=== PATIENT | male | born 1985 | race Caucasian/White ===

== ENCOUNTER 2018-08-16 21:06 | Emergency (ER) | payer MEDICAID, OTHER ==
[~2018-08-16] VITALS: Ht 170.2 cm; Wt 72.7 kg
[2018-08-16 21:08] VITALS: Ht 170.2 cm; Wt 72.7 kg
[2018-08-16] MEDS ORDERED: SOD CHLORIDE 0.9% 1,000 ML IV STA (21:09)
[2018-08-16] MEDS ORDERED: LORAZEPAM 2 MG INJ IV ONE (22:00)
[2018-08-16] MEDS ORDERED: HALOPERIDOL 5 MG INJ IM ONE (22:00)
[2018-08-16] MEDS ORDERED: IBUPROFEN 200 MG TAB ONE (22:31)
--- NOTE | 2018-08-16 22:32 | ERD ---
ER Documentation Chief Complaint Chief Complaint BIB RA39 s/p intentional hanging/suicide attempt HPI This is a 33-year-old male with a history of severe depression and prior suicide attempt. He is here with his girlfriend who came home from work and found him in bed. She said he was not very responsive so she rolled him over to look at him and he was mumbling garbled speech and had severe petechiae and purpura on his face and neck. She ran into the closet and saw a belt where he apparently tried to hang himself. She said he is tried to hang himself in the past. He did not leave a note. The patient is unable to converse with me and will not answer questions. She said he has been altered since she found to him and is just mumbling. She said he will have episodes where he will yell and curse words clearly and get a bit combative. She said there are no pills in the house that she knows of, there is no alcohol in the house. And there are no drugs.. She states that lately he has been acting more depressed than usual and has insinuated that he may try to kill himself again. ROS All systems reviewed and are negative except as per history of present illness. PMhx/Soc Medical and Surgical Hx: pt denies Medical Hx, pt denies Surgical Hx Smoking Status: Unknown if ever smoked FmHx Family History: No coronary disease Physical Exam Vitals Vital Signs Date Temp Pulse Resp B/P (MAP) Pulse Ox O2 O2 Flow FiO2 Time Delivery Rate 08/16/18 98.3 102 30 124/91 100 21:08 (102) Physical Exam Const: Well-developed, well-nourished Head: Atraumatic, normocephalic Eyes: Normal Conjunctiva, PERRLA, EOMI, normal sclera, no nystagmus ENT: Normal External Ears, Nose and Mouth, moist mucus membranes, multiple petechiae on his face with some ecchymosis. Neck: Patient is in a c-collar with bruising around his neck.] Resp: Clear to auscultation bilaterally, no wheezing, rhonchi, rales Cardio: Regular rate and rhythm, no murmurs, S1 S2 present Abd: Soft, non tender x 4, non distended. Normal bowel sounds, no guarding or rebound, no pulsitile abdominal masses or bruits Skin: No petechiae or rashes, no ecchymosis , no maculopapular rash Back: No midline or flank tenderness Ext: No cyanosis, or edema, FROM x 4, normal inspection, neurovascularly intact x 4 Neur: [Moves all 4 extremities with some gibberish talk then will become belligerent and combative yelling curse words Psych: Unable to assess Result Diagram: 08/16/18210808/16/182108 Results 24 hrs Laboratory Tests Test 08/16/18 21:09 White Blood Count 18.3 10^3/ul Red Blood Count 5.49 10^6/ul Hemoglobin 16.4 g/dl Hematocrit 47.6 % Mean Corpuscular Volume 86.7 fl Mean Corpuscular Hemoglobin 29.9 pg Mean Corpuscular Hemoglobin Concent 34.5 g/dl Red Cell Distribution Width 12.5 % Platelet Count 415 10^3/UL Mean Platelet Volume 9.0 fl Immature Granulocytes % 0.900 % Neutrophils % 77.3 % Lymphocytes % 16.9 % Monocytes % 4.1 % Eosinophils % 0.5 % Basophils % 0.3 % Nucleated Red Blood Cells % 0.0 /100WBC Immature Granulocytes # 0.170 10^3/ul Neutrophils # 14.1 10^3/ul Lymphocytes # 3.1 10^3/ul Monocytes # 0.8 10^3/ul Eosinophils # 0.1 10^3/ul Basophils # 0.1 10^3/ul Nucleated Red Blood Cells # 0.0 10^3/ul Prothrombin Time 12.4 Sec Prothrombin Time Ratio 1.0 INR International Normalized Ratio 0.91 Activated Partial Thromboplast Time 26.2 Sec Sodium Level 140 mmol/L Potassium Level 4.5 mmol/L Chloride Level 105 mmol/L Carbon Dioxide Level 18 mmol/L Anion Gap 17 Blood Urea Nitrogen 12 mg/dl Creatinine 1.20 mg/dl Est Glomerular Filtrat Rate mL/min > 60 mL/min Glucose Level 236 mg/dl Calcium Level 9.9 mg/dl Total Bilirubin 0.8 mg/dl Direct Bilirubin 0.00 mg/dl Indirect Bilirubin 0.8 mg/dl Aspartate Amino Transf (AST/SGOT) 43 IU/L Alanine Aminotransferase (ALT/SGPT) 32 IU/L Alkaline Phosphatase 67 IU/L Total Protein 8.8 g/dl Albumin 5.3 g/dl Globulin 3.50 g/dl Albumin/Globulin Ratio 1.51 Salicylates Level < 1.0 mg/dl Acetaminophen Level < 10.0 ug/ml Ethyl Alcohol Level < 10.0 mg/dl Current Medications Medications Dose Sig/Sintia Start Time Status Last (Trade) Ordered Route PRN Stop Time Admin Dose Reason Admin Sodium 1,000 ml @ Q1H STAT 08/16/18 DC 08/16/18 Chloride 1,000 mls/hr IV 21:09 21:44 08/16/18 22:08 Lorazepam 1 mg ONCE ONCE 08/16/18 DC 08/16/18 (Ativan) IV 22:00 21:44 08/16/18 22:01 Haloperidol 5 mg ONCE ONCE 08/16/18 DC 08/16/18 (Haldol) IM 22:00 21:43 08/16/18 22:01 Ibuprofen 200 mg STK-MED 08/16/18 DC (Motrin) ONCE .ROUTE 22:31 08/16/18 22:32 50 mg ONCE ONCE 08/16/18 08/16/18 Diphenhydrami IV 23:00 22:38 ne HCl 08/16/18 23:01 (Benadryl) Procedures/MDM The patient so far his labs are unremarkable and are waiting the UDS The patient was taken to CT scan, and we were unable to do this because he became very belligerent and was yelling absurdities. Patient needed to be given Ativan 1 mg IV, Haldol 5 mg IM and Benadryl 50 mg IV. We will obtain CT scans of the brain, soft tissue neck, C-spine, chest x-ray. He will then need to be seen by psychiatry for a 5150 hold pending these results. These were negative should be clinically clear for inpatient treatment and will transfer out. Departure Diagnosis: Primary Impression: Suicide attempt by hanging Encounter type: initial encounter Qualified Codes: T71.162A - Asphyxiation due to hanging, intentional self-harm, initial encounter Condition: JOSE Juan DO Aug 16, 2018 22:32
[2018-08-16] MEDS ORDERED: DIPHENHYDRAMINE 50 MG INJ IV ONE (23:00)
[2018-08-16] MEDS ORDERED: IODIXANOL LOCM 100 ML BTL ONE (23:06)
[2018-08-16] MEDS ORDERED: SOD CHLORIDE 0.9% 100 ML ONE (23:06)
--- NOTE | 2018-08-17 03:49 | PSY ---
Date/Time of Note Date/Time of Note DATE: 08/17/18 TIME: 03:44 Psychiatric Subjective Eval Consent Pt consented to telemedicine: Yes Subjective Evaluation Patient location: emergency Chief Complaint: BIB RA39 s/p intentional hanging/suicide attempt Medical history Problems Medical Problems: (1) Suicide attempt by hanging Status: Acute Allergies: Coded Allergies: No Known Allergy (Unverified , 08/16/18) Psychiatric Objective Eval Mental Status Examination: Laboratory Results Laboratory Tests Test 08/16/18 21:09 White Blood Count 18.3 10^3/ul Red Blood Count 5.49 10^6/ul Hemoglobin 16.4 g/dl Hematocrit 47.6 % Mean Corpuscular Volume 86.7 fl Mean Corpuscular Hemoglobin 29.9 pg Mean Corpuscular Hemoglobin Concent 34.5 g/dl Red Cell Distribution Width 12.5 % Platelet Count 415 10^3/UL Mean Platelet Volume 9.0 fl Immature Granulocytes % 0.900 % Neutrophils % 77.3 % Lymphocytes % 16.9 % Monocytes % 4.1 % Eosinophils % 0.5 % Basophils % 0.3 % Nucleated Red Blood Cells % 0.0 /100WBC Immature Granulocytes # 0.170 10^3/ul Neutrophils # 14.1 10^3/ul Lymphocytes # 3.1 10^3/ul Monocytes # 0.8 10^3/ul Eosinophils # 0.1 10^3/ul Basophils # 0.1 10^3/ul Nucleated Red Blood Cells # 0.0 10^3/ul Prothrombin Time 12.4 Sec Prothrombin Time Ratio 1.0 INR International Normalized Ratio 0.91 Activated Partial Thromboplast Time 26.2 Sec Sodium Level 140 mmol/L Potassium Level 4.5 mmol/L Chloride Level 105 mmol/L Carbon Dioxide Level 18 mmol/L Anion Gap 17 Blood Urea Nitrogen 12 mg/dl Creatinine 1.20 mg/dl Est Glomerular Filtrat Rate mL/min > 60 mL/min Glucose Level 236 mg/dl Calcium Level 9.9 mg/dl Total Bilirubin 0.8 mg/dl Direct Bilirubin 0.00 mg/dl Indirect Bilirubin 0.8 mg/dl Aspartate Amino Transf (AST/SGOT) 43 IU/L Alanine Aminotransferase (ALT/SGPT) 32 IU/L Alkaline Phosphatase 67 IU/L Total Protein 8.8 g/dl Albumin 5.3 g/dl Globulin 3.50 g/dl Albumin/Globulin Ratio 1.51 Salicylates Level < 1.0 mg/dl Acetaminophen Level < 10.0 ug/ml Ethyl Alcohol Level < 10.0 mg/dl Assessment and Plan Recommendation/Plan Discharge Disposition: Psychiatric inpatient Legal Status: Place involuntary hold Assessment Additional comments: IDENTIFYING INFORMATION: 33 year old Male patient who is currently located at the hospital and for whom psychiatric consultation was requested. SOURCES OF INFORMATION: The patient who appears to be reliable and the medical records; the nursing staff. CHIEF COMPLAINT: "my friend found out". HISTORY OF PRESENT ILLNESS: The patient was interviewed via telemedicine in the presence of and under the supervision of nursing staff of the hospital. The consent to conducting this interview via telemedicine was obtained by the nursing staff at the hospital. MIKEY Neri reports that the patient presented s/p suicide attempt, had a red noni around his neck and a belt hung. Was confused and disoriented in the ER. Has h/o past SA and past 5150 hold. Is not on a 5150 hold. The patient reports having SI and tried to hang himself earlier today. Admits to feeling depressed, having anhedonia, insomnia, fatigue, low appetite. The patient denies having AH, VH, delusions. The patient denies using alcohol heavily or regularly. The patient denies using any other substances. In terms of past psychiatric history, the patient reports having a history of [facility] psychiatric hospitalization. The patient reports having a history of past suicide attempts. Past medication trials: wellbutrin. PAST MEDICAL HISTORY: none. CURRENT MEDICATIONS: none. ALLERGIES TO MEDICATIONS: NKDA. LABORATORY TESTS: CBC with white blood cells of 18.3, CMP with glucose of 236, albumin 5.3, alcohol was not detected, UDS pending. SOCIAL HISTORY: lives alone, single, no children; employed as a free-lancer. REVIEW OF SYSTEMS: Constitutional (e.g., fever, weight loss): negative; Eyes, Ears, Nose, Mouth, Throat: negative; Cardiovascular: negative; Respiratory: negative; Gastrointestinal: negative; Genitourinary: negative; Musculoskeletal: negative; Integumentary (skin and/or breast): negative; Neurological: negative; Psychiatric: as per HPI; Endocrine: negative; Hematologic/Lymphatic: negative; Allergic/Immunologic: negative. MENTAL STATUS EXAMINATION: General Appearance and Behavior: Calm, cooperative with the interview, pleasant with the current interviewer, makes fair eye contact, fairly groomed, no abnormal movements noted, Speech: Regular rate, regular rhythm, normal latency, normal volume, Somewhat decreased amount. Flow of thought: sequential, logical, goal-directed, Content of thought: no auditory hallucinations, no visual hallucinations, no delusions, positive for suicidal ideation; no homicidal ideation, Mood: "depressed", Affect: dysthymic, dysphoric, not reactive, Attention: normal based on the interview, Insight: fair, Judgment: poor, Memory: normal based on the interview, Sensorium: alert and oriented to person, place , "August 15, 2018". ASSESSMENT: The patient's presentation and history are consistent with the diagnosis of major depressive disorder, cannabis use disorder. The patient presents in a major depressive episode in the context of medication noncompliance, psychosocial stressors and substance use. No evidence of psychosis, tania, hypomania onxam. PLAN: - Medication management: Would start Wellbutrin XL 150 mg in the morning. Would start haloperidol 5 mg IM PRN severe agitation q4 hours. Would start diphenhydramine 50 mg IM PRN severe agitation q4 hours. Would start lorazepam 2 mg IM PRN severe agitation q4 hours Will defer to the inpatient psychiatry team for other medication changes. - Labs: Please check UDS. - Psychotherapy: Provided supportive psychotherapy and psychoeducation. - Disposition: Would recommend involuntary admission to the inpatient psychiatric unit given the severity of the patient's psychiatric condition and the fact that the patient is an imminent danger to self and/or others so long as the patient has been cleared medically for admission to psychiatry. Inpatient psychiatric admission is at this time the least restrictive environment where the patient can receive the psychiatric care that is needed. Would place on suicide precautions. The patient fulfills criteria for being placed on an involuntary ho ld for being a danger to self due to a psychiatric disorder. Discussed about the above plan with Dr. Souza. CHRISTOS BO MD Aug 17, 2018 03:49
--- NOTE | 2018-08-17 06:00 | EN ---
Date/Time of Note Date/Time of Note DATE: 08/17/18 TIME: 06:00 ER Progress Note Indication: SI Duration: 4 hr Family History: As documented in the original HPI The patient was observed with serial exams over the above timeframe. The patient continued to be well-appearing and observation continued without complication. A ll other needs have been met during emergency department stay. Routine psychiatric medications ordered: [Yes, see EMR] Hold status: [Telemetry medicine psychiatry recommended 5150 hold] Placement status: Pending SVETLANA TRINH MD Aug 17, 2018 06:00
[2018-08-17] MEDS ORDERED: BUPROPION (XL) 150 MG TAB PO SCH (09:00)
[2018-08-17 10:16] VITALS: BP 127/80; PULSE 85; RESP 16
--- NOTE | 2018-08-17 11:29 | EN ---
Date/Time of Note Date/Time of Note DATE: 08/17/18 TIME: 11:28 ER Progress Note Patient was transferred to [facility]. He has not had any violent episodes, has been under suicide precautions and is hemodynamically stable on discharge ADRIAN HERRING DO Aug 17, 2018 11:29
== END 2018-08-17 12:25 ==
LOC: E/R 21:06
DX: S00.83XA Contusion of other part of head, initial encounter (principal); R40.2142 Coma scale, eyes open, spontaneous, at arrival to emergency department; R40.2352 Coma scale, best motor response, localizes pain, at arrival to emergency department; R40.2222 Coma scale, best verbal response, incomprehensible words, at arrival to emergency department; S10.93XA Contusion of unspecified part of neck, initial encounter; X83.8XXA Intentional self-harm by other specified means, initial encounter; Y92.9 Unspecified place or not applicable
CPT/HCPCS: 36415; 70450; 70491; 71045; 72125; 80053; 80307; 81001; 85025; 85610; 85730; 96372; 96374; 96375; J1200; J1630; J2060; J7030; Q9967; Z7502; Z7610